=== PATIENT | male | born 1950 | race Two or more races ===

== ENCOUNTER 2017-12-21 05:58 | Day surgery (SDC) | payer MEDICARE, BC ==
--- NOTE | 2017-12-17 15:52 | Pre-Procedure Note/Attestation ---
Pre-Procedure Note/Attestation Complete Prior to Procedure Planned Procedure: right Procedure Narrative: 1-PTERYGIUM EXCISION, with amniotic graft, right eyes. 2-symblepharon excision, right eye. 3-superficial keratectomy, right eye. Indications for Procedure Pre-Operative Diagnosis: 1- giant pterygium, right eye. 2- symblepharon, right eye. 3- corneal scar, right eye. Attestation I attest that I discussed the nature of the procedure; its benefits; risks and complications; and alternatives (and the risks and benefits of such alternatives ), prior to the procedure, with the patient (or the patient's legal shared services representative). I attest that, if there was a reasonable possibility of needing a blood transfusion, the patient (or the patient's legal shared services representative) was given the [facility] standardized written summary, pursuant to the Jabari Burleson Blood Safety Act ([place] Health and Safety Code # 1645, as amended). I attest that I re-evaluated the patient just prior to the surgery and that there has been no change in the patient's H&P, except as documented below: KISRTEN BOYD Dec 17, 2017 15:51
[2017-12-21] VITALS (10 sets, daily range): BP systolic 135–154; BP diastolic 79–94
[~2017-12-21] VITALS: Ht 177.8 cm; Wt 87.1 kg
[~2017-12-21 05:58] MED LIST: LOSARTAN POTASS50 MG ORAL
[2017-12-21] MEDS ORDERED: Akten 3.5% 1ml Btl RIGHT EYE ONE (06:00)
[2017-12-21] MEDS ORDERED: Maxitrol Opth Oint 3.5gm ONE (06:53)
[2017-12-21] MEDS ORDERED: Tetracaine 0.5% Opth 4ml Soln ONE (06:53)
[2017-12-21] MEDS ORDERED: Lidocaine 2% 20mg/ml/EPI 0.01mg/ml 20ml ONE (06:53)
[2017-12-21] MEDS ORDERED: Povidone-Iodine 5% opth solution ONE (06:54)
[2017-12-21] MEDS ORDERED: LR 1000ml 1,000 ML IVLG SCH (06:55)
--- NOTE | 2017-12-21 06:55 | Anethesia Preoperative Eval ---
Anesthesia Pre-op PMH/ROS General Date of Evaluation: Dec 21, 2017 Time of Evaluation: 06:58 Anesthesiologist: maxime ASA Score: ASA 3 Mallampati Score Class I : Soft palate, uvula, fauces, pillars visible Class II: Soft palate, uvula, fauces visible Class III: Soft palate, base of uvula visible Class IV: Only hard plate visible Mallampati Classification: Class II Surgeon: [place] Diagnosis: pterygium right eye Surgical Procedure: pterygium excision with amniontic graft Anesthesia History: none Social History: smoking - nonsmoker Allergies: Coded Allergies: No Known Allergies (Unverified , 12/20/17) Past Medical History Cardiovascular: Reports: HTN, other - hypercholesterolemia Gastrointestinal/Genitourinary: Reports: other - gastric ulcer Anesthesia Pre-op Phys. Exam Physician Exam Last Vital Signs Date Time Temp Pulse Resp B/P (MAP) Pulse Ox O2 Delivery O2 Flow Rate FiO2 12/21/17 06:55 97.3 55 20 135/83 95 Room Air Constitutional: NAD Neurologic: CN 2-12 intact Cardiovascular: RRR Respiratory: CTA Gastrointestinal: S/NT/ND Airway Exam Mallampati Score: Class II MO: full Neck: supple TMD: 2fb ROM: full Anesthesia Pre-op A/P Labs Labs Test 12/21/17 07:10 White Blood Count 6.2 K/UL (4.8-10.8) Red Blood Count 4.99 M/UL (4.70-6.10) Hemoglobin 15.5 G/DL (14.2-18.0) Hematocrit 45.4 % (42.0-52.0) Mean Corpuscular Volume 91 FL (80-99) Mean Corpuscular Hemoglobin 31.0 PG (27.0-31.0) Mean Corpuscular Hemoglobin Concent 34.0 G/DL (32.0-36.0) Red Cell Distribution Width 12.5 % (11.6-14.8) Platelet Count 235 K/UL (150-450) Mean Platelet Volume 6.7 FL (6.5-10.1) Neutrophils (%) (Auto) 49.6 % (45.0-75.0) Lymphocytes (%) (Auto) 30.6 % (20.0-45.0) Monocytes (%) (Auto) 10.1 % (1.0-10.0) Eosinophils (%) (Auto) 8.1 % (0.0-3.0) Basophils (%) (Auto) 1.6 % (0.0-2.0) Sodium Level 136 MMOL/L (136-145) Potassium Level 5.6 MMOL/L (3.5-5.1) Chloride Level 104 MMOL/L (98-107) Carbon Dioxide Level 26 MMOL/L (21-32) Anion Gap 6 mmol/L (5-15) Blood Urea Nitrogen 25 mg/dL (7-18) Creatinine 1.2 MG/DL (0.55-1.30) Estimat Glomerular Filtration Rate > 60 mL/min (>60) Glucose Level 116 MG/DL (74-106) Calcium Level 8.3 MG/DL (8.5-10.1) Risk Assessment & Plan Assessment: asa3 Plan: mac Status Change Before Surgery: No Pre-Antibiotics Drug: SANDRA Lara Dec 21, 2017 06:55
[2017-12-21] MEDS ORDERED: Atropine Inj 1mg/10ml Syr IV PRN (07:00)
[2017-12-21] MEDS ORDERED: Midazolam 2mg/2ml Inj IVP PRN (07:00)
[2017-12-21] MEDS ORDERED: Propofol 200mg/20ml IV ONE (07:00)
[2017-12-21] MEDS ORDERED: DiphenhydrAMINE 50mg/ml Inj IVP PRN (07:00)
[2017-12-21] MEDS ORDERED: Midazolam 2mg/2ml Inj ONE (07:00)
[2017-12-21] MEDS ORDERED: fentaNYL 100 mcg/2 mL IV PRN (07:00)
[2017-12-21] MEDS ORDERED: LR 1000ml ONE (07:00)
[2017-12-21 07:36] LABS: BASOPHILS % (AUTO) 1.6 % (0.0-2.0); EOSINOPHILS % (AUTO) 8.1 % (0.0-3.0); HEMATOCRIT 45.4 % (42.0-52.0); HEMOGLOBIN 15.5 G/DL (14.2-18.0); LYMPHOCYTES % (AUTO) 30.6 % (20.0-45.0); MEAN CORPUSCULAR VOLUME 91 FL (80-99); MONOCYTES % (AUTO) 10.1 % (1.0-10.0); NEUTROPHILS % (AUTO) 49.6 % (45.0-75.0); PLATELET COUNT 235 K/UL (150-450); RED BLOOD COUNT 4.99 M/UL (4.70-6.10); RED CELL DISTRIBUTION WIDTH 12.5 % (11.6-14.8); WHITE BLOOD COUNT 6.2 K/UL (4.8-10.8)
[2017-12-21 07:38] LABS: ANION GAP 6 mmol/L (5-15); BLOOD UREA NITROGEN 25 mg/dL (7-18); CALCIUM 8.3 MG/DL (8.5-10.1); CARBON DIOXIDE 26 MMOL/L (21-32); CHLORIDE 104 MMOL/L (98-107); CREATININE 1.2 MG/DL (0.55-1.30); POTASSIUM 5.6 MMOL/L (3.5-5.1); SODIUM 136 MMOL/L (136-145)
--- NOTE | 2017-12-21 08:36 | Discharge Summary ---
Discharge Summary Discharge Summary Discharge Summary DATE OF ADMISSION: 12/21/2017 DATE OF DISCHARGE: 12/21/2017 REASON FOR HOSPITALIZATION: 1- Giant pterygium, right eye 2- Symblepharone 3- corneal opacity SURGERY PERFORMED: 1- Pterygium excision with amniotic membrane graft 2- symblepharon excision 3- superficial keratectomy, right eye CONDITION IN THE HOSPITAL:The patient tolerated the surgery without complications. DISCHARGE CONDITION: The patient was stable at discharge. DISCHARGE MEDICATIONS: 1. Vigamox eye drops one drop q.i.d, OD 2. Prednisolone one drop q.i.d, OD POSTOPERATIVE ORDERS: The patient has to rest at home. No bending, No lifting, No watching Television tonight. POSTOPERATIVE FOLLOW UP: The patient will be followed in my office tomorrow morning at 7 o'clock. KIRSTEN BOYD Dec 21, 2017 08:36
--- NOTE | 2017-12-21 08:40 | Brief Operative Note ---
Immediate Post Operative Note Operative Note Chief Complaint: Blurry vision, pain, and difficulty driving Pre-op Diagnosis: 1- giant pterygium, right eye. 2- symblepharon, right eye. 3- corneal scar, right eye. Procedure: 1- Giant pterygium excision with amniotic membrane graft, right eye 2- Symblepharon excision, right eye 3- Superficial keratectomy, right eye Post-op Diagnosis: same as pre-op Surgeon: Kirsten Lora MD. Syrup Blender: None Additional Surgeons: None Anesthesiologist: Dr. Rosas Anesthesia: local, MAC Specimen: none Complications: none Condition: stable Fluids: 500ml Estimated Blood Loss: minimal Drains: hemovac Implant(s) used?: KIRSTEN Jolley Dec 21, 2017 08:40
--- NOTE | 2017-12-21 09:40 | Immediate Post-Op Evaluation ---
Immediate Post-Op Evalulation Immediate Post-Op Evalulation Procedure: pterygium excision w/ amniotic graft right eye, symblepheron excision right Date of Evaluation: Dec 21, 2017 Time of Evaluation: 08:46 IV Fluids: 250ml lr Blood Products: none Estimated Blood Loss: negligible Blood Pressure Systolic: 154 Blood Pressure Diastolic: 89 Pulse Rate: 58 Respiratory Rate: 18 O2 Sat by Pulse Oximetry: 96 Temperature (Fahrenheit): 97.6 Pain Score (1-10): 0 Nausea: No Vomiting: No Complications none Patient Status: awake, reacts, patent Hydration Status: adequate Drug: SANDRA Lara Dec 21, 2017 09:40
--- NOTE | 2017-12-21 09:44 | 48 Hour Post Anesthesia Eval ---
Post Anesthesia Evaluation Procedure: pterygium excision w/ amniotic graft right eye, symblepheron excision right Date of Evaluation: Dec 21, 2017 Time of Evaluation: 08:48 Blood Pressure Systolic: 149 0: 89 Pulse Rate: 64 Respiratory Rate: 18 Temperature (Fahrenheit): 97.6 O2 Sat by Pulse Oximetry: 97 Airway: patent Nausea: No Vomiting: No Pain Intensity: 0 Hydration Status: adequate Cardiopulmonary Status: stable Mental Status/LOC: patient returned to baseline Post-Anesthesia Complications: none Follow-up care needed: N/A SANDRA AN Dec 21, 2017 09:44
--- NOTE | 2017-12-21 11:00 | Pre-op HX & Phy Repo 2 SIG ---
DATE OF ADMISSION: 12/21/2017 PRESURGICAL INTERNAL MEDICINE HISTORY AND PHYSICAL DATE OF EVALUATION: 12/21/2017 REASON FOR EVALUATION: The patient was referred by Dr. Alfred Lora. The patient is a 67-year-old male, who is going for elective surgery on the right eye. The patient has a pterygium of right eye. The patient was evaluated. Chart was reviewed. PAST MEDICAL HISTORY AND REVIEW OF SYSTEMS: Remarkable for hypertension and occasional heartburn. Denies history of stroke or seizures. No history of chest pain, palpitation, or heart attack. Denies history of respiratory problem. No asthma or bronchitis. No history of diabetes or thyroid problem. Denies history of anemia. No history of bleeding ulcer or hepatitis. The patient had a colonoscopy 3 weeks ago. According to the patient, is normal. The patient denies history of anemia. No history of renal failure or prostate problem. The patient had a history of hyperlipidemia for a period of time. PAST SURGICAL HISTORY: Colonoscopy 3 weeks ago. ALLERGIES: Not known. PRESENT MEDICATIONS: Include losartan 50 mg daily. Occasional omeprazole. In the past used pravastatin. FAMILY HISTORY: Father from heart attack. Mother when the patient was 4 years old. The patient does not know the cause of mother's . HABITS: Denies history of smoke, alcohol, or street drug use. PHYSICAL EXAMINATION: GENERAL: Alert, well-developed, well-nourished male in his 60s. No acute distress. VITAL SIGNS: Blood pressure 135/83, temperature 97.9, heart rate 55 and regular per minute, and O2 saturation 98% on room air. SKIN: Warm and clear. No open ulcer or diaphoresis. LYMPH NODES: Not enlarged. HEENT: Head, normocephalic, atraumatic. Ears, clear. Eyes, full description per Dr. Alfred Lora. Mouth, clear and moist. No dentures. NECK: Supple. No jugular vein distention. Carotid artery +2. Trachea is midline. CHEST: No deformity or asymmetry. LUNGS: Clear to auscultation to percussion. No rales or rhonchi. HEART: Normal sinus. Bradycardia. No ectopy. No murmur. No S3 or S4. ABDOMEN: Soft, benign. Liver and spleen not enlarged. No rebound. EXTREMITIES: No peripheral edema. No varicose vein. No calf tenderness. NERVOUS SYSTEM: No tremor. No nystagmus. GENITOURINARY TRACT: Normal for gender. CVA nontender. No dysuria. LABORATORY AND DIAGNOSTIC DATA: ECG shows sinus bradycardia, 53 per minute, right bundle-branch block. The patient's last p.o. new intake 10 p.m. last night. IMPRESSION: 1. Pterygium, right eye. 2. Hypertension, controlled. 3. Sinus bradycardia, right bundle-branch block. PLAN: Pterygium excision, right eye per Dr. Alfred Lora. CONCLUSION: The patient's vital signs stable. EKG shows sinus bradycardia at 55 per minute, which showed right bundle-branch block. The patient did not eat or drink from last night. The patient's condition optimized for surgery. Bart Hernandez M.D. DR: YUVAL JOB#: [id number] CC:
[2017-12-21] MEDS ORDERED: BSS 15ml BTL ONE (12:28)
--- NOTE | 2017-12-21 16:55 | Cardiology Report ---
APPROVED REPORT EKG Measurement Heart [id number] Sinus bradycardia Right bundle branch block Abnormal ECG
--- NOTE | 2017-12-22 18:00 | Operative Note - Dictated ---
DATE OF OPERATION: 12/21/2017 FACILITY: [facility]. SURGEON: Alfred Lora M.D. SPORTS LEADERSHIP INSTRUCTOR: None. ANESTHESIOLOGIST: Rani Llamas M.D. ANESTHESIA: Monitored anesthesia care (MAC) plus local anesthesia with lidocaine 2% and 1:100,000 epinephrine. PREOPERATIVE DIAGNOSES: 1. Giant pterygium of the right eye. 2. Symblepharon. 3. Corneal scar. POSTOPERATIVE DIAGNOSES: 1. Giant pterygium of the right eye. 2. Symblepharon. 3. Corneal scar. SURGERY PERFORMED: 1. Pterygium excision with amniotic membrane graft. 2. Symblepharon excision. 3. Superficial keratectomy in the right eye. INDICATION FOR SURGERY: The patient is a 67-year-old gentleman with history of osteoarthritis, back pain, hypertension, and hypercholesterolemia. The patient is on hydrochlorothiazide, Diovan, and simvastatin. The patient is complaining of blurry vision in the right eye and and pain in the right eye. On examination of the right eye, there is giant pterygium from the nasal part of the conjunctiva to the cornea to the center of the cornea within and corneal scar. To improve vision in the right eye, the pterygium has to be removed, amniotic membrane has to be grafted, and symblepharon has to be removed and also superficial keratectomy has to be cared for. INFORMED CONSENT: The nature of the surgery, risks, benefits, alternatives, and potential complications were all explained in detail to the patient in his language, Farsi. The potential complications including, but not limited to bleeding, infection, corneal ulcer, corneal perforation, scleral lenses, globe rupture, and corneal rupture all explained in detail to the patient in his language, Farsi. The patient voiced understanding and accepted all the complications. There is no alternative for this problem; therefore the surgery had to be performed in the operating room with amniotic membrane graft. The patient voiced understanding all the complications and accepted all the complications. Then, he signed a consent form, which is in the chart. DESCRIPTION OF SURGERY AND FINDINGS: Following that, the patient was taken to the operation room in a stable condition. Lidocaine gel, Akten 3.5% were applied to the conjunctiva of the right eye. Anesthesia was given by the anesthesiologist, Dr. Llamas. After adequate anesthesia and sedation has been achieved, the right eye was prepped and draped in a sterile fashion for intraocular surgery. Following that, a speculum was placed in the right eye. Following that, lidocaine 2% with epinephrine 1:100,000 was injected under the pterygium and symblepharon. Following that, pterygium was excised from the root towards cornea and pterygium was removed in toto. Hemostasis was performed. Following that, the symblepharon was excised in toto. Hemostasis was performed. Following that, the superficial keratectomy was performed and tried to touch the clear corneal part. With dylan, cornea was trimmed to the stroma. Following that, amniotic membrane was grafted to the sclera. With Tisseel glue, the amniotic membrane glued to the sclera. Following that, the conjunctiva was glued from top of the amniotic membrane. Following that, a therapeutic contact lens was placed on the cornea. Hemostasis was performed. The excess tissue was trimmed and removed. The patient tolerated the surgery without complications. At the end of the surgery, the eye was patched with eye pad on top of clear sterile fenestrated shield. The patient was transferred to the recovery room. Postoperative orders and directions were given to the patient. The patient will be discharged home upon stabilization. The patient will be followed in my office tomorrow morning at 7 o'clock. Alfred Lora M.D. DR: JOSE R JOB#: [id number] CC:
== END 2017-12-21 10:00 | disposition home or self-care (01) ==
LOC: SUR 05:58
DX: H11.001 Unspecified pterygium of right eye (principal); I10 Essential (primary) hypertension; E78.00 Pure hypercholesterolemia, unspecified; M19.90 Unspecified osteoarthritis, unspecified site; R00.1 Bradycardia, unspecified; I45.10 Unspecified right bundle-branch block; Z82.49 Family history of ischemic heart disease and other diseases of the circulatory system; H11.231 Symblepharon, right eye; H17.9 Unspecified corneal scar and opacity
CPT/HCPCS: 36415; 65426; 68110; 80048; 85025; 93005; J2250; J2704; J7120; 94003; 94150